=== PATIENT | female | born 1970 | race Asian ===

== ENCOUNTER → 2020-12-15 13:46 | Outpatient (CLI) | payer OTHER, SELFPAY ==
[2020-12-15 15:20] LABS: COVID19 -Nasal RAPID Negative (Negative)
== END ==
PROVIDERS: Visit Provider Physician Assistant
DX: Z01.812 Encounter for preprocedural laboratory examination (principal); Z20.822 Contact with and (suspected) exposure to COVID-19
CPT/HCPCS: 87635

== ENCOUNTER 2020-12-17 12:09 | Day surgery (SDC) | payer OTHER, SELFPAY ==
[2020-12-17] VITALS (8 sets, daily range): BP systolic 99–112; BP diastolic 61–76; PULSE 64–82; RESP 12–16; TEMP 36.1–37.2; O2SAT 98–100; BMI 28.9
--- NOTE | 2020-12-17 | PATH_ITS ---
[facility] Accession Number: [id number] . 01 Material submitted: . PART A: small bowel - SMALL BOWEL BIOPSIES PART B: colon - SIGMOID POLYP . 01 Clinical history: . SDC . 02 Diagnosis: A. Small Bowel, Biopsies: Duodenal mucosa with no diagnostic abnormality. Negative for active inflammation, features of sprue, dysplasia, or malignancy. . B. Sigmoid Colon, Polyp, Biopsy: Tubulovillous adenoma. No evidence of malignancy or high-grade dysplasia. MRV 12/22/2020 1118 Local . 02 Electronically signed: . Mei Robert MD, Pathologist NPI- [id number] . 01 Gross description: . Part A: SMALL BOWEL BIOPSIES: Received in formalin are 2 fragment(s) of santana, soft tissue measuring 0.4 x 0.2 x 0.2 cm to 0.3 x 0.2 x 0.2 cm submitted entirely in 1 cassette(s) Part B: SIGMOID POLYP: Received in formalin is 1 fragment(s) of santana, soft tissue measuring 1.0 x 1.0 x 0.8 cm submitted entirely in 1 cassette(s) /MARK 12/18/2020 0551 Local . 02 Pathologist provided ICD-10: D12.5 . 02 CPT . 842711, 159306 Performed at: 01 [facility] [address], [place], [place] [id number] MD Benjy Parker MD Phone: [phone] Performed at: 02 [facility] [address] [place], [place] [id number] MD Mie Robert MD Phone: [phone]
[2020-12-17] MEDS: SODIUM CHLORIDE 0.9% 1,000 ML 70 ML IV (13:00)
--- NOTE | 2020-12-17 13:18 | P.HP_ITS ---
History of Present Illness History of Present Illness Chief complaint: [facility] [place]ative: iron deficiency anemia Patient History Family & Social History Social History: household members children Tobacco & Substance use: Smoking Status Never smoker alcohol intake never Substance Use Type does not use Meds Home Medications and Allergies Home Medications Medication Instructions Recorded Confirmed Type ferrous sulfate 325 mg 12/17/20 History Allergies Allergy/AdvReac Type Severity Reaction Status Date / Time Latex, Natural Rubber Allergy ITCHING Verified 12/17/20 12:50 Exam Vital Signs (past 8 hours): - 12/17/20 12:52 Temperature 97 F L Pulse Rate 71 Respiratory Rate 14 Blood Pressure 104/68 Pulse Oximetry 99 Oxygen Delivery Method Room Air Narrative Exam Narrative: oropharynx free of lesions Chest clear to auscultation percussion Cardiac exam reveals no clear S3 or murmur Assessment & Plan Assessment & Plan narrative: Iron deficiency anemia rule out upper tract lesion such as peptic esophagitis or ulcer disease and rule out colonic issues such as large colon polyps or neoplasia. Risks, benefits, alternatives have been explained.
--- NOTE | 2020-12-17 13:20 | PM.OP.ENDO ---
Procedure & Clinicians Study performed: EGD and colonoscopy Indications: Iron deficiency anemia Surgeon: Khalif Joaquin Procedure Notes Procedure in detail: After informed consent was obtained the patient was placed in the left lateral decubitus position. The video upper scope was placed into the oropharynx and with the patient's help swelled into the esophagus. The esophagus, stomach, duodenum were carefully examined. On withdrawal retroflexed view the GE junction was performed. The scope was removed. The patient tolerated the procedure well. At this point the colonoscope was substituted and the patient turned. The scope was introduced the rectum and slowly advanced to cecum. Preparation was good. On slow withdrawal mucosa was carefully examined. The scope was removed. The patient tolerated the procedure well. Blood loss none Complications none Sedation Total sedation time 34 minutes Versed was 7 mg fentanyl 100 mg IV titration EGD 1. Normal esophagus 2. Normal stomach 3. Normal duodenal bulb and sweep biopsies taken to rule out celiac Colonoscopy 1. 1 cm semi pedunculated sigmoid polyp behind a fold hot snared and removed completely 2. Otherwise negative colonoscopy to cecum If further problems with anemia persists would suggest performing pill camera to evaluate the small bowel. In the meantime she should stay on iron have her hematocrit monitored closely
[2020-12-17] MEDS: fentaNYL 250 MCG/5 ML INJ IV (14:36)
[2020-12-17] MEDS: MIDAZOLAM 5 MG/5 ML VIAL IV (14:36)
== END 2020-12-17 16:20 | disposition home or self-care (01) ==
PROVIDERS: Referring Provider Internal Medicine Gastroenterology; Visit Provider Internal Medicine Gastroenterology
PROC: 0DJ08ZZ Inspection of Upper Intestinal Tract, Via Natural or Artificial Opening Endoscopic (ICD-10-PCS; CPT 43235; principal; 2020-12-17 13:30)
PROC: 0DJD8ZZ Inspection of Lower Intestinal Tract, Via Natural or Artificial Opening Endoscopic (ICD-10-PCS; CPT 45378; 2020-12-17 13:30)
DX: D50.9 Iron deficiency anemia, unspecified (principal); D12.5 Benign neoplasm of sigmoid colon
CPT/HCPCS: 45385; 43235; J2250; J3010